=== PATIENT | female | born 1975 | race Caucasian/White ===

== ENCOUNTER 2016-07-28 20:42 | Emergency (ER) | payer OTHER ==
[~2016-07-28] VITALS: Ht 162.6 cm; Wt 52.2 kg
--- NOTE | 2016-07-28 20:42 | NUR ---
Patient was BIBA at this time.
[2016-07-28 20:50] VITALS: BP 106/72
--- NOTE | 2016-07-28 20:55 | NUR ---
Estelita at [facility] side talking with patients .
--- NOTE | 2016-07-28 21:15 | NUR ---
Patient being taken to bed 08 via gurney per EMS.
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
--- NOTE | 2016-07-28 21:29 | NUR ---
PA student at bedside to evaluate patient.
[2016-07-28 21:52] LABS: BASOPHILS # (AUTO) 0.3 K/uL (0.00-0.22); EOSINOPHILS # (AUTO) 0.1 K/uL (0-0.4); EOSINOPHILS % (AUTO) 1.6 % (0.0-4.0); LYMPHOCYTES % (AUTO) 14.1 % (20.5-51.1); MEAN CORPUSCULAR HEMOGLOBIN 31 pg (27-31); MEAN CORPUSCULAR HGB CONC 33 g/dL (33-37); MEAN CORPUSCULAR VOLUME 92 fL (80-94); MONOCYTES # (AUTO) 0.2 K/uL (0.8-1.0); MONOCYTES % (AUTO) 2.8 % (1.7-9.3); NEUTROPHILS # (AUTO) 5.4 K/uL (1.8-7.7); PLATELET COUNT (AUTO) 246 K/uL (140-450); RED BLOOD CELL COUNT(AUTO) 4.91 MIL/uL (4.20-5.40); RED CELL DISTRIBUTION WIDTH 12.4 % (11.6-13.7)
[2016-07-28 22:15] LABS: ANION GAP 13.4 (8-16); CARBON DIOXIDE 26.5 mmol/L (21-32); CHLORIDE 110 mmol/L (98-107); POTASSIUM 3.9 mmol/L (3.5-5.1); SODIUM SERUM 146 mmol/L (136-145)
[2016-07-28 22:16] LABS: CALCIUM 8.1 mg/dL (8.5-10.1); CREATININE 0.7 mg/dL (0.6-1.3); GFR ARICAN-AMERICAN 120 mL/min (>90); GFR NON ARICAN-AMERICAN 99 mL/min (>90); GLUCOSE 114 mg/dL (74-106); UREA NITROGEN, BLOOD 8 mg/dL (7-18)
[2016-07-28] MEDS: NACL 0.9% 2,000 ML IV ONE (22:17)
[2016-07-28] MEDS: ONDANSETRON 4 MG/2 ML VIAL IVP ONE (22:18)
[2016-07-28 22:22] LABS: TOTAL BILIRUBIN 0.2 mg/dL (0.0-1.0)
[2016-07-28 22:23] LABS: ALANINE AMINOTRANSFERASE 11 U/L (12-78); ALBUMIN 4.1 g/dL (3.4-5.0); ALKALINE PHOSPHATASE 49 U/L (46-116); ASPARTATE AMINOTRANSFERASE 18 U/L (15-37); LIPASE 201 U/L (73-393); TOTAL PROTEIN, SERUM 7.6 g/dL (6.4-8.2)
[2016-07-28 22:24] LABS: ACETAMINOPHEN < 0.5 ug/ml (10-30); SALICYLATE < 2.8 mg/dL (2.8-20.0)
[2016-07-28 22:26] LABS: ALCOHOL, BLOOD < 3 mg/dL (<3)
--- NOTE | 2016-07-28 22:33 | NUR ---
PT TAKEN FOR CT SCAN
--- NOTE | 2016-07-28 22:41 | NUR ---
Patient back from XRAY via wheelchair per tech.
--- NOTE | 2016-07-28 22:47 | NUR ---
Dr. Lomas evaluating patient at bedside.
[2016-07-28 23:38] LABS: APPEARANCE,URINE CLEAR (CLEAR); BILIRUBIN,URINE NEGATIVE (NEGATIVE); BLOOD, URINE NEGATIVE (NEGATIVE); COLOR,URINE YELLOW (YELLOW); LEUKOCYTE ESTERASE ,URINE NEGATIVE (NEGATIVE); NITRITE, URINE NEGATIVE (NEGATIVE); PH,URINE 6.5 (5.0-9.0); PROTEIN,URINE NEGATIVE (NEGATIVE); UGLUCOSE NEGATIVE (NEGATIVE); UROBILINOGEN,URINE 0.2 EU/dL (0.2 - 1)
[2016-07-29 00:06] LABS: AMPHETAMINE, URINE NEGATIVE ng/ml (NEG <=1000); BARBITURATE, URINE NEGATIVE ng/ml (NEG <=200); BENZODIAZEPINE, URINE NEGATIVE ng/mL (NEG <=200); CANNABINOID, URINE NEGATIVE ng/mL (NEG <=50); COCAINE, URINE NEGATIVE ng/mL (NEG <=300); OPIATE, URINE NEGATIVE ng/mL (NEG <=2000); PHENCYCLIDINE SCREEN,URINE NEGATIVE ng/mL (NEG <=25)
[2016-07-29 00:10] VITALS: BP 104/67
--- NOTE | 2016-07-29 00:10 | NUR ---
Patient discharged with v/s stable. Written and verbal after care instructions given and explained. Patient verbalized understanding. Ambulatory with steady gait. All questions addressed prior to discharge. Advised to follow up with PMD. FAMILY AT BED SIDE. NO S/S OF DISTRESS NOTED AT THE MOMENT.
[2016-07-29 01:02] LABS: BACTERIA,URINE FEW /HPF (None Seen); RBC,URINE 0-5 (RARE) /HPF (0-5); SQUAMOUS EPITHELIAL CELL,UR 0-3 (FEW) /LPF (0-3 (FEW)); WBC,URINE 0-5 (RARE) /HPF (0-5)
== END 2016-07-29 00:10 | disposition home or self-care (01) ==
LOC: MED 20:42
DX: R55 Syncope and collapse (principal); R11.2 Nausea with vomiting, unspecified; R07.89 Other chest pain; Z72.89 Other problems related to lifestyle
CPT/HCPCS: 36415; 70450; 71010; 80053; 80305; 81001; 83690; 84484; 84703; 85025; 85379; 93005; 96374; 99285; G0480; G0482; J2405; J7030; Q0092